=== PATIENT | female | born 1985 | race African-American/Black ===

== ENCOUNTER 2017-12-17 18:47 | Emergency (ER) | payer SELFPAY ==
[2017-12-17 18:54] VITALS: BP 141/105; PULSE 81; TEMP 98.6; BMI 24.1
[2017-12-17] MEDS ORDERED: AMOXICILLIN 500 MG CAPSULE (FP) PO ONE (19:21)
[2017-12-17] MEDS ORDERED: traMADol HCL 50 MG TABLET PO ONE (19:21)
[2017-12-17] MEDS ORDERED: traMADol HCL 50 MG TABLET ONE (19:25)
[2017-12-17] MEDS ORDERED: AMOXICILLIN 250 MG CAPSULE ONE (19:25)
--- NOTE | 2017-12-17 19:29 | PDOC ---
History of Present Illness - General Chief Complaint: Toothache Stated Complaint: Toothache Time Seen by Provider: 12/17/17 18:54 History Source: Patient Exam Limitations: No Limitations - History of Present Illness Initial Comments: CHIEF COMPLAINT: 32 y/o afebrile female c/o right upper tooth pain. HISTORY OF PRESENT ILLNESS: the patient was seen by her dentist 2 weeks ago and had a root canal with a temporary crown. She states for the past few days the same tooth has been getting more painful. She took 400mg of Advil today which helped for 20 minutes but then the pain returned. SHe is returning to her dentist on 12/24 for permanent crown. She did not call the dentist. She denies fever. Vital signs on arrival are notable for BP of 140/105. REVIEW OF SYSTEMS: GENERAL/CONSTITUTIONAL: No fever/chills. No weakness. No weight change. HEENT: +right tooth pain. No change in vision. No ear pain or discharge. No sore throat. MUSCULOSKELETAL: No joint or muscle swelling or pain. No neck or back pain. SKIN: No rash or easy bruising. NEUROLOGIC: No headache, vertigo, loss of consciousness, or loss of sensation. PHYSICAL EXAM: GENERAL: The patient is awake, alert, and fully oriented, in no acute distress. HEAD: Normal with no signs of trauma. ENT: Pupils equal, round and reactive to light, extraocular movements intact, sclera anicteric, conjunctiva clear. Right upper 3rd tooth with visible temporary crown is minimally sensitive to touch with surrounding gingival erythema and edema. No trismus. Uvula midline. NEUROLOGICAL: Normal speech, normal gait. CN II-XII grossly intact. SKIN: Warm, dry, normal turgor, no rashes or lesions noted. Past History - Past Medical History Allergies/Adverse Reactions: Allergies Allergy/AdvReac Type Severity Reaction Status Date / Time No Known Allergies Allergy Verified 12/17/17 18:50 Home Medications: Ambulatory Orders Amoxicillin - [Amoxicillin 500mg Capsule -] 500 mg PO TID #21 capsule 12/17/17 Tramadol HCl 50 mg PO TID #10 tablet MDD 3 12/17/17 COPD: No - Immunization History Immunization Up to Date: Yes - Suicide/Smoking/Psychosocial Hx Smoking History: Never smoked Hx Alcohol Use: No Drug/Substance Use Hx: No *Physical Exam - Vital Signs Last Vital Signs Temp Pulse Resp BP Pulse Ox 98.6 F 81 18 141/105 100 12/17/17 18:50 12/17/17 18:50 12/17/17 18:50 12/17/17 18:50 12/17/17 18:50 Medical Decision Making - Medical Decision Making A/P: 32 y/o female with right upper gingivitis and toothache. Will give PO amox and tramadol in ED. WIll discharge to home with rx for amox and tramadol. Provided her with the name and address of an urgent care dental for follow up prior to her December 24 appointment. The patient verbalizes understanding of all instructions, has no further questions and is awaiting discharge. *DC/Admit/Observation/Transfer Diagnosis at time of Disposition: Toothache - Discharge Dispostion Disposition: HOME Condition at time of disposition: Good - Prescriptions Prescriptions: Amoxicillin - [Amoxicillin 500mg Capsule -] 500 mg PO TID #21 capsule Tramadol HCl 50 mg PO TID #10 tablet MDD 3 - Referrals - Patient Instructions Printed Discharge Instructions: DI for Dental Pain Additional Instructions: Discharge Instructions: -A prescription for antibiotics and pain medication has been sent to your pharmacy; the pain medication may make you drowsy -Please follow up with your dentist or at the following dental clinic as soon as possible: [facility] Address: [address] [place] [id number] - Post Discharge Activity
== END 2017-12-17 19:34 | disposition home or self-care (01) ==
LOC: JERFT 18:47
DX: K08.89 Other specified disorders of teeth and supporting structures (principal); K05.10 Chronic gingivitis, plaque induced
CPT/HCPCS: 99281-25